=== PATIENT | male | born 1980 | race Caucasian/White ===

== ENCOUNTER 2024-06-25 11:07 | Emergency (ER) | payer MEDICAID, SELFPAY ==
[2024-06-25 11:15] VITALS: BP 125/83; PULSE 78; RESP 18; TEMP 36.3; O2SAT 96
--- NOTE | 2024-06-25 11:21 | ED.GENADUL_ITS ---
Discharge Plan Disposition Patient Disposition: Home Condition: Good Discharge Details Clinical Impression: Methadone dependence, Hepatitis Primary Care Provider: None,None ED Provider: Lyn Ritter Home Meds and New Rx's Prescriptions: Continued methadone 5 mg/5 mL solution 50 mg PO DAILY Discharge Instructions Additional Instructions: You received your methadone dosing here today. May return back to the emergency department for your dose tomorrow. Please keep your appointment on Wednesday with the [facility] clinic to begin routine care with them for your methadone dosing. We have drawn some basic labs so that you may discuss this further with your primary care as well as safety and need for your hepatitis C medication that you are previously prescribed. I have referred you to local primary care. Please follow-up with them as soon as possible to discuss this. If you develop any new or worsening symptoms please seek care urgently once again. Discharge Data Discharge Date/Time-TO BE ENTERED AT DEPARTURE: 06/25/24 12:03 HPI General Date/Time Provider Initiated Documentation: 06/25/24 11:21 . Limitations to Documentation: no limitations . Information obtained by: patient and RN notes reviewed . History of Present Illness 44 year old M presents to the emergency department with the chief complaint of Will dosing, Patient did receive the following treatments prior to arrival, none Related Data Home Medications ?Medication ?Instructions ?Recorded ?Confirmed methadone 5 mg/5 mL oral solution 50 mg PO DAILY 06/25/24 06/25/24 Allergies Allergy/AdvReac Type Severity Reaction Status Date / Time No Known Allergies Allergy Unverified 06/25/24 11:19 General Stated Complaint: RX Refill KACI: 4 Review of Systems Constitutional Constitutional: Reports as per HPI, Denies chills, Denies fever(s) and Denies headache(s) ENT Ears, Nose, Mouth, and Throat: Denies headache(s) Cardiovascular Cardiovascular: Reports as per HPI, Denies chest pain and Denies dyspnea Respiratory Respiratory: Reports as per HPI, Denies cough and Denies dyspnea Neurologic Neurologic: Denies headache(s) Exam Const General: cooperative, healthy appearing, comfortable and no acute distress Nutritional Appearance: well nourished and overweight Orientation: alert and awake Resp Effort & Inspection: normal respiratory effort, able to speak in complete sentences and no respiratory distress Cardio Rate: regular rate Rhythm: regular rhythm Skin General skin exam: no rashes or lesions noted Neuro General: patient alert and patient awake Cognition: normal cognition Speech: speech normal Gait: normal gait Psych Appearance: grossly normal and well kempt Mental Status: mental status grossly normal Speech and Movement: speech and movement normal Course Vital Signs Vital signs: Vital Signs Temperature 36.3 C L 06/25/24 11:15 Pulse 78 06/25/24 11:15 Respiratory Rate 18 06/25/24 11:15 Blood Pressure 125/83 06/25/24 11:15 Pulse Oximetry 96 06/25/24 11:15 Temperature 36.3 C L 06/25/24 11:15 Temperature Source Oral 06/25/24 11:15 Pulse 78 06/25/24 11:15 Respiratory Rate 18 06/25/24 11:15 Blood Pressure 125/83 06/25/24 11:15 Blood Pressure Position Sitting 06/25/24 11:15 Pulse Oximetry 96 06/25/24 11:15 Oxygen Delivery Method Room Air 06/25/24 11:15 Oxygen Flow Rate 0 06/25/24 11:15 Medical Decision Making Patient is a pleasant 44-year-old male with past medical history significant for chronic viral hepatitis C, opioid use disorder currently on medication assisted therapy, history of cocaine abuse, pulmonary nodule, presenting today for methadone dosing. Patient was recently released from incarceration and has been on gas dosing at [facility], 50 mg daily. Patient does have documentation supporting the above. He was also prescribed medication for his hepatitis C although patient feels that he needs further evaluation for this. While he does admit to some exposures, he feels that the explanation of the medication as well as the disease process was unclear at the time of incarceration. Will obtain some baseline blood work so that he may be discussed this further with primary care now that he has been released from intermediate. He has not been using any other narcotics or illicit substances. He is living in a clean living home and feels safe and supported in this place. He has not had any acute illnesses. Has not been using. Will arrange for local PCP. He has appointment with [facility] on Wednesday, will likely need to return here for MAT dosing in the AM. Will obtain labs in planning for the Zepatier dosing which he already has. He has been hesitant to take this medicatio nuntil following up with PCP. Based on medication recommendations, obtained baseline labs and hepatitis. Patient given the 50 mg of methadone is noted on paperwork. He will return tomorrow for repeat dosing prior to establishing with [facility] at scheduled appointment on Wednesday. Return precautions discussed. All his questions and concerns were addressed and he is in agreement this plan. Patient did not stay for labs at this 1 not needed, these were obtained for future planning with primary care. Referral for primary care sent. This documentation was generated using [employer] dictation system, please disregard any oddities of phrase or misspellings. Quality:SDOH Health Related Social Needs: No Data to Display PFSH All Active Problems (Updated 06/25/24 @ 11:48 by AMBIKA Anderson) Hepatitis (Acute) Methadone dependence (Acute) Social History Smoking/Tobacco Use Status: Never Smoking risk assessment performed?: Yes Alcohol Intake: never Drug use: Never Substance use type: does not use Do you feel safe at home: Yes Do you feel safe in your relationship?: Yes
[2024-06-25] MEDS: Methadone Liquid 10 MG/ML 50 MG PO (11:59)
[2024-06-25 12:03] LABS: Abs Immature Grans 0.04 10^3/uL (0.0-0.06); Absolute Basophil Count 0.06 10^3/uL (0.0-0.2); Absolute Eosinophil Count 0.25 10^3/uL (0.0-0.7); Absolute Lymphocyte Count 1.92 10^3/uL (1.2-3.4); Absolute Monocyte Count 0.58 10^3/uL (0.1-0.8); Absolute Neutrophil Count 4.02 10^3/uL (1.2-6.7); Basophils % 0.9 %; Eosinophils % 3.6 %; HCT 46.6 % (40.0-50.0); HGB 16.2 g/dL (13.5-17.5); Immature Grans % 0.6 %; Lymphocytes % 27.9 %; MCH 31.4 pg (27.0-33.0); MCHC 34.8 % (32.0-36.0); MCV 90 fL (80-95); Monocytes % 8.4 %; Neutrophils % 58.6 %; Platelet Count 286 10^3/uL (130-400); RBC 5.16 10^6/uL (4.36-5.78); RDW 12.4 % (11.8-14.1); RDW-SD 40.8 fL; WBC 6.87 10^3/uL (4.4-10.8)
[2024-06-25 12:23] LABS: ALT 68 U/L (16-63); AST 40 U/L (15-37); Albumin 3.4 g/dL (3.4-5.0); Alkaline Phosphatase 97 U/L (46-116); Anion Gap 5.8 mmol/L (3-11); BUN 14 mg/dL (7-18); Bilirubin, Total 0.37 mg/dL (0.2-1.0); CO2 29.2 mmol/L (21.0-32.0); CREATININE 0.6 mg/dL (0.70-1.30); Calcium 9.1 mg/dL (8.5-10.1); Chloride 104 mmol/L (98-107); Glucose 104 mg/dL (74-106); Potassium 4.6 mmol/L (3.5-5.1); Sodium 139 mmol/L (136-145); Total Protein 7.5 g/dL (6.4-8.2)
[2024-06-27 11:34] LABS: HBs Antibody, Qual Negative (See Note); HBs Antibody, Quant <3.1 mIU/mL (See Note); Hepatitis A Antibody IgM Negative (Negative); Hepatitis B Core Antibody Negative (Negative); Hepatitis B surface Ag Negative (Negative); Hepatitis C Ab w Rflx HCV PCR Reactive (Negative)
[2024-06-28 13:38] LABS: HCV RNA Detection Quantitative 4290000 IU/mL (Undetected); HCV RNA Qualitative Detected (Undetected)
== END 2024-06-25 12:03 | disposition home or self-care (01) ==
PROVIDERS: Emergency Provider Physician Assistant
DX: F11.20 Opioid dependence, uncomplicated (principal); B19.20 Unspecified viral hepatitis C without hepatic coma
CPT/HCPCS: 36415; 80053; 86704; 86706; 86709; 86803; 87340; 87522; 99283; 85025

== ENCOUNTER 2024-06-26 08:02 | Emergency (ER) | payer MEDICAID, SELFPAY ==
[2024-06-26 08:04] VITALS: BP 138/91; PULSE 77; RESP 14; TEMP 36.1; O2SAT 98
--- NOTE | 2024-06-26 08:07 | W.ED.GENAD ---
Discharge Plan Disposition Patient Disposition: Home Condition: Stable Discharge Details Chief Complaint: RX Refill Clinical Impression: Methadone dependence Primary Care Provider: None,None ED Provider: Catalina Romero Home Meds and New Rx's Prescriptions: No Action methadone 5 mg/5 mL solution 50 mg PO DAILY Discharge Instructions Instructions: Substance Misuse Treatment Additional Instructions: You were seen in the emergency department today for your daily methadone dose. This was provided and the plan is for you to present to [facility] for your subsequent doses. You have laboratory testing for hepatitis pending, your primary care provider should follow-up on the results of these laboratory studies. Please follow-up with your primary care provider in the next few days to discuss this visit and any symptoms that change, worsen, or persist. Thank you for allowing us to be part of your care. HPI General Mode of arrival: ambulatory. Date/Time Provider Initiated Documentation: 06/26/24 08:03. Limitations to Documentation: no limitations. Information obtained by: patient and old records reviewed. HPI Narrative: HPI: This is a 44-year-old male patient with a history of hepatitis, on daily methadone maintenance therapy, presenting for evaluation of his methadone dose. The patient is moving up here and will reside here for the next 6 months, came to the hospital yesterday where he received his confirmed 50 mg dose of methadone. He was instructed to return here today, and has a scheduled appointment with [facility] tomorrow for outpatient initiation. The patient had basic laboratory studies performed yesterday which I reviewed and demonstrate a very mild transaminitis. He has hepatitis screening pending, and was referred to establish with primary care with whom he can follow-up on these results. Otherwise the patient reports that he is in his normal state of health, and has no acute concerns or complaints today. Exam: Gen: Awake and alert, in no apparent distress HEENT: Non-icteric sclera Neck: Supple Lungs: No apparent respiratory distress, normal respiratory effort. CV: Appears well perfused Abdomen: Non-distended MSK: Moves 4 extremities without apparent limitation in ROM Skin: Visualized skin without rashes, cyanosis. Neuro: Normal Gait, no obvious focal deficits or facial asymmetry. Speaks in full, clear sentences. Psych: Appropriate for situation. MDM: This is a 44-year-old male patient presenting for evaluation for a med dose. Differential includes but is not limited to methadone dependence, currently compliant, certainly considered hepatitis and liver injury. The patient does not appear to be experiencing any symptoms concerning for active intoxication or withdrawal. He is otherwise hemodynamically appropriate, well-appearing, and without specific complaints. ED Course: Methadone dose administered, and at this time, the patient has had a full medical evaluation and is safe for discharge to home. They are hemodynamically stable, ambulatory, and tolerating PO. They are understanding of the follow-up plan and return precautions. They left our facility without incident. Catalina Romero MD Related Data Home Medications ?Medication ?Instructions ?Recorded ?Confirmed methadone 5 mg/5 mL oral solution 50 mg PO DAILY 06/25/24 06/26/24 Allergies Allergy/AdvReac Type Severity Reaction Status Date / Time No Known Allergies Allergy Unverified 06/26/24 08:06 General Stated Complaint: RX Refill KACI: 4 Course Vital Signs Vital signs: Vital Signs Temperature 36.1 C L 06/26/24 08:04 Pulse 77 06/26/24 08:04 Respiratory Rate 14 06/26/24 08:04 Blood Pressure 138/91 H 06/26/24 08:04 Pulse Oximetry 98 06/26/24 08:04 Temperature 36.1 C L 06/26/24 08:04 Temperature Source Temporal Artery Scan 06/26/24 08:04 Pulse 77 06/26/24 08:04 Respiratory Rate 14 06/26/24 08:04 Blood Pressure 138/91 H 06/26/24 08:04 Pulse Oximetry 98 06/26/24 08:04 Oxygen Delivery Method Room Air 06/26/24 08:04 Oxygen Flow Rate 0 06/26/24 08:04 Pain Level 0 06/26/24 08:04 Medical Decision Making Quality:SDOH Health Related Social Needs: No Data to Display PFSH All Active Problems (Updated 06/26/24 @ 08:09 by Catalina Romero MD) Hepatitis (Acute) Methadone dependence (Acute) Social History Smoking/Tobacco Use Status: Never Smoking risk assessment performed?: Yes Alcohol Intake: never Drug use: Never Substance use type: does not use Do you feel safe at home: Yes Do you feel safe in your relationship?: Yes
[2024-06-26] MEDS: Methadone Liquid 10 MG/ML 50 MG PO (08:15)
== END 2024-06-26 08:18 | disposition home or self-care (01) ==
LOC: ER 08:16
PROVIDERS: Emergency Provider Emergency Medicine
DX: Z51.81 Encounter for therapeutic drug level monitoring (principal); F11.20 Opioid dependence, uncomplicated; B19.20 Unspecified viral hepatitis C without hepatic coma
CPT/HCPCS: 99282

== ENCOUNTER 2024-07-17 11:47 | Emergency (ER) | payer MEDICAID, SELFPAY ==
[2024-07-17 11:50] VITALS: BP 124/82; PULSE 78; RESP 15; TEMP 36.5; O2SAT 96
--- NOTE | 2024-07-17 11:59 | NUR.NOTE ---
Nursing Note: Called [facility] and spoke w/Nurse Noemí. Verified that patient did miss his dosing this morning and his dose was confirmed at 50mg
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
[2024-07-17] MEDS: Methadone Liquid 10 MG/ML 50 MG PO (12:21)
== END 2024-07-17 12:29 | disposition home or self-care (01) ==
LOC: ER 12:27
PROVIDERS: Emergency Provider Emergency Medicine
DX: F11.20 Opioid dependence, uncomplicated (principal); B19.20 Unspecified viral hepatitis C without hepatic coma
CPT/HCPCS: 99282

== ENCOUNTER 2024-08-14 03:24 | Outpatient (CLI) | payer MEDICAID, SELFPAY ==
[2024-08-14 17:05] LABS: HCT 47.5 % (40.0-50.0); MCH 31.4 pg (27.0-33.0); MCHC 33.7 % (32.0-36.0); MCV 93 fL (80-95); MPV 9.3 fL (8.0-11.0); Platelet Count 279 10^3/uL (130-400); RDW-SD 41.4 fL; WBC 9.71 10^3/uL (4.4-10.8)
[2024-08-14 17:31] LABS: CREATININE 0.8 mg/dL (0.70-1.30); Estimated GFR 113.32 (mL/min/1.73m2)
== END 2024-08-14 03:25 | disposition home or self-care (01) ==
LOC: LBO 03:24
PROVIDERS: Absent Provider Nurse Practitioner Family; Referring Provider Nurse Practitioner Family; Visit Provider Nurse Practitioner Family
DX: Z79.899 Other long term (current) drug therapy (principal)
CPT/HCPCS: 36415; 85027; 82565